=== PATIENT | male | born 1940 ===

== ENCOUNTER 2017-08-27 20:17 | Inpatient (IN) | payer MEDICARE, SELFPAY ==
[2017-08-27 20:52] LABS: #Lymphocytes 0.8 thou/uL (1.20-3.40); #Monocytes 0.9 thou/uL (0.11-0.59); #Neutrophils 12.8 thou/uL (1.40-6.50); %Eosinophils 0.2 % (0.0-10.0); %Lymphocytes 5.6 % (21.0-51.0); %Neutrophils 88.3 % (42.0-75.0); Hemoglobin 15.5 g/dL (14.0-18.0); Mean Corpuscular HGB CONC 33.5 g/dL (32.0-36.0); Mean Corpuscular Volume 95.5 fl (80.0-94.0); Mean Platelet Volume 8.7 fL (7.4-10.4); Platelet Count 191 thou/uL (130-400); RBC Distribution Width 12.9 % (11.5-14.5); Red Blood Cell (RBC) Count 4.83 mill/uL (4.70-6.10); White Blood Cell (WBC) Count 14.5 thou/uL (4.8-10.8)
[2017-08-27 21:02] LABS: PTT 24.9 SEC (22.9-36.1); Prothrombin Time 13.7 SEC (12.0-14.7)
[2017-08-27 21:06] LABS: Bilirubin Negative (Negative); Blood, Urine Negative (Negative); Clarity CLEAR (Clear); Glucose, Urine (Dipstick) Negative (Negative); Leukocyte Negative (Negative); Nitrite Negative (Negative); Protein, Urine (Dipstick) Negative (Neg-Trace); Specific Gravity, Urine 1.019 (1.002-1.036); Urobilinogen 0.2 mg/dL (0.2-1.0)
--- NOTE | 2017-08-27 21:13 | CT ---
CT OF BRAIN PERFORMED WITHOUT CONTRAST ENHANCEMENT: 08/27/17 HISTORY: History of previous stroke. Found unresponsive. There is generalized ventricular and sulcal prominence. There is encephalomalacic change related to a n old appearing left middle cerebral artery infarct. There is also some decreased attenuation in the right middle cerebral artery territory in the right frontal lobe. This could be acute to subacute in nature. No hemorrhage or mass effect. IMPRESSION: Possible acute or subacute right MCA infarct. POS: [facility]
[2017-08-27 21:24] LABS: ALT (SGPT) 89 U/L (8-55); AST (SGOT) 352 U/L (5-34); Albumin 4.4 g/dL (3.4-4.8); Alkaline Phosphatase 94 U/L (40-150); Anion Gap 22 mmol/L (10-20); BUN (Urea Nitrogen) 34 mg/dL (8.4-25.7); Bilirubin, Total 0.8 mg/dL (0.2-1.2); Calc. Creatinine Clearance 0 mL/min (70-130); Calcium 9.8 mg/dL (7.8-10.44); Carbon Dioxide 17 mmol/L (23-31); Chloride 101 mmol/L (98-107); Estimated GFR-MDRD 51; Globulin 3.9 g/dL (2.4-3.5); Glucose 134 mg/dL (83-110); Potassium 4.8 mmol/L (3.5-5.1); Protein, Total 8.3 g/dL (5.8-8.1); Sodium 135 mmol/L (136-145)
[2017-08-27 21:25] LABS: Troponin I 0.033 ng/mL (< 0.028)
[2017-08-27 21:29] LABS: CKMB 201.7 ng/mL (0-6.6)
--- NOTE | 2017-08-27 21:50 | RAD ---
PORTABLE CHEST: 08/27/17 HISTORY: Altered mental status, hypertension. Heart size is within normal limits. There are atherosclerotic changes of the aorta. The lungs are ana maria ar of infiltrates. IMPRESSION: 1. Atherosclerosis. 2. No active intrathoracic disease. POS: [facility]
[2017-08-27] MEDS ORDERED: Acetaminophen 325 MG Suppository ONE (22:02)
[2017-08-27] MEDS ORDERED: Aspirin 300 MG Suppository ONE (22:03)
[2017-08-27 22:05] LABS: Amphetamine Not Detected (NotDetected); Barbiturates Screen Not Detected (NotDetected); Benzodiazepine Screen Not Detected (NotDetected); Cocaine Metabolite Screen Not Detected (NotDetected); Medtox Control Line Valid? VALID (VALID); Medtox Reader # READER 1; Methadone Not Detected (NotDetected); Methamphetamine Not Detected (NotDetected); Opiate Screen Not Detected (NotDetected); Oxycodone Screen Not Detected (NotDetected); Phencyclidine (PCP) Not Detected (NotDetected); THC/Cannabinoid Screen Not Detected (NotDetected); Tricyclic Screen Not Detected (NotDetected)
[2017-08-27 22:10] LABS: Acetaminophen Less than 6.0 mcg/mL (10.0-30.0); Alcohol Less than 10 mg/dL (Less than 10); Salicylate Less than 8.0 mg/dL (15.0-30.0)
[2017-08-27] MEDS ORDERED: Sodium Chloride 0.9% 500 ML IV SCH ×2 (22:30→23:30)
[2017-08-27] MEDS ORDERED: Acetaminophen 325 MG TAB PO PRN ×2 (22:47→22:55)
[2017-08-27] MEDS ORDERED: Ondansetron HCl/PF 4 MG/2 ML Vial IVP PRN (22:47)
[2017-08-27] MEDS ORDERED: Ondansetron ODT 4 MG TAB SL PRN (22:47)
[2017-08-27] MEDS ORDERED: Sodium Chloride 0.9% 1,000 ML IV SCH (22:55)
[2017-08-27] MEDS ORDERED: Dextrose 5 % And 0.9 % NaCl 1,000 ML IV SCH (23:00)
[2017-08-27 23:19] VITALS: BMI 22.8
[2017-08-27 23:34] LABS: Creatinine, Urine 131.65 mg/dL (63-166)
[2017-08-28 00:21] LABS: Cardiac Risk 4.6 (Less than 4.5)
[2017-08-28 02:15] LABS: #Lymphocytes 1.3 thou/uL (1.20-3.40); #Monocytes 1.3 thou/uL (0.11-0.59); #Neutrophils 14.4 thou/uL (1.40-6.50); %Basophils 0.1 % (0.0-1.0); %Eosinophils 0.1 % (0.0-10.0); %Lymphocytes 7.7 % (21.0-51.0); %Monocytes 7.6 % (0.0-10.0); %Neutrophils 84.5 % (42.0-75.0); Hemoglobin 14.4 g/dL (14.0-18.0); Mean Corpuscular HGB CONC 33.4 g/dL (32.0-36.0); Mean Corpuscular Volume 95.8 fl (80.0-94.0); Mean Platelet Volume 8.1 fL (7.4-10.4); Platelet Count 215 thou/uL (130-400); RBC Distribution Width 12.7 % (11.5-14.5)
[2017-08-28 02:28] LABS: Lactic Acid 1.7 mmol/L (0.5-2.2)
[2017-08-28 02:42] LABS: Anion Gap 15 mmol/L (10-20); BUN (Urea Nitrogen) 36 mg/dL (8.4-25.7); Calc. Creatinine Clearance 55 mL/min (70-130); Calcium 9.4 mg/dL (7.8-10.44); Carbon Dioxide 21 mmol/L (23-31); Cardiac Risk 4.8 (Less than 4.5); Chloride 105 mmol/L (98-107); Cholesterol 190 mg/dl (< 200 Desired); Estimated GFR-MDRD 61; Glucose 123 mg/dL (83-110); HDL Cholesterol 40 mg/dL (>60 Neg Risk); LDL Cholesterol, Calculated 123 mg/dL; Sodium 137 mmol/L (136-145); Triglycerides 137 mg/dL (Less than 150)
[2017-08-28 02:44] LABS: CKMB 142.7 ng/mL (0-6.6)
[2017-08-28] MEDS: Sodium Chloride 0.9% 1,000 ML IV SCH ×4 (03:25→21:49)
--- NOTE | 2017-08-28 03:53 | HP-2 ---
TIME AND DATE OF SERVICE: 2200 hours on 08/27/2017 CODE STATUS: FULL. PRIMARY CARE PHYSICIAN: City call. ATTENDING: Aman Mix MD RESIDENT: Thong Barajas MD HISTORIAN: EMS. CHIEF COMPLAINT: Stroke. HISTORY OF PRESENT ILLNESS: Aman Ramirez is a 77-year-old male with past medical history of hyper tension, multiple strokes (5) that have left him with deficits in the right upper extremity contractu res and bilateral lower extremity contractures. The son came home tonight and found the patient slum ped over in a chair, moaning. He was unresponsive. EMS was called and when the EMS got there, the p atient was unresponsive to the EMS as well. Systolic blood pressure was 150 on the scene. He was fo und at approximately 8:00 p.m. and was down for an unknown period of time. No family member was at t he bedside to provide any history at all and the patient would not respond to any questions. PAST MEDICAL HISTORY: Per EMS, the patient has a history of five CVAs with right-sided deficits and hypertension. PAST SURGICAL HISTORY: According to the EMS, he has had a back surgery. ALLERGIES: Unknown. MEDICATIONS: Unknown. FAMILY HISTORY: Unknown. SOCIAL HISTORY: Unknown. REVIEW OF SYSTEMS: Unable to obtain. PHYSICAL EXAMINATION: VITAL SIGNS: Blood pressure 108/60, pulse 98, respiratory rate 22, T-max 99.5, pulse ox 100% on room air. Current weight 32 kilograms. GENERAL: The patient is alert and oriented x0. He is in no acute distress currently and he is thin. He is aphasic. EYES: Pupils equal, round, react to light and accommodation. Extraocular muscles are intact. Conju nctivae are within normal limits. ENT: Tympanic membranes pearly eng without bulging or erythema. Nasal mucosa and oropharynx had dr y mucous membranes. NECK: Supple, without lymphadenopathy or thyromegaly. CARDIOVASCULAR: Regular rhythm. The patient was slightly tachycardic. No murmurs, gallops, or rubs . RESPIRATORY: Normal effort. No retractions. LUNGS: Clear to auscultation bilaterally. SKIN: Warm and dry without cyanosis or lesions. ABDOMEN: Soft, nontender. Bowel sounds normoactive. No masses or distention. EXTREMITIES: No clubbing, cyanosis, or edema. MUSCULOSKELETAL: Patient has contractures in the right upper extremity. Was unable to assess range of motion and strength due to patient not cooperating with the exam. He was able to squeeze fingers with his left hand and he was able to lift up both lower extremities on command. No movement of the right upper extremity. NEUROLOGIC: As above, aphasic, more movement with left upper extremity and right and left lower extr emities on command. No movement of right upper extremity. Unable to assess sensation. PSYCHIATRIC: Unable to test. LABORATORY AND DIAGNOSTIC DATA: White blood cell count 14.5, hemoglobin 15.5, hematocrit 46.1, plate lets 191. Sodium 135, potassium 4.8, chloride 101, carbon dioxide 17, BUN 34, creatinine 1.35, gluco se 134, calcium 198, total protein 8.3, albumin 4.4, total bilirubin 0.8, AST 352, ALT 89, alkaline p hosphatase 94, lactic acid of 2.7. INR 1.0, PT 13.7, PTT 24.4, CK-MB 201.7. Troponins 0.033. UA wa s negative. UDS was negative. EKG showed sinus tachycardia with frequent PVCs. No ischemic changes . Chest x-ray showed atherosclerosis but no active cardiothoracic disease. CT of the head showed po ssible subacute or acute right MCA infarct. ASSESSMENT AND PLAN: A 77-year-old man with stroke, found altered by a son at home. 1. Right middle cerebral artery and cerebrovascular accident. Admit to stroke, placed on stroke pro tocol. Aspirin was given in the ED. Consult stroke team. Check CTA of head and neck, TTE and brain MRI. Check TSH, magnesium, phos, and fasting lipid panel. 2. Lactic acidosis likely secondary to hypovolemia. Repeat lactic acid after fluid bolus. Blood an d urine cultures, no current source of infection. We will hold antibiotics at this time. 3. Hypokalemia. Gentle IV fluids at 75 mL an hour. Check a BNP and strict I's and O's. 4. Elevated CK-MB. We will check a CK. It is likely secondary to unknown time of the patient being down trend cardiac enzymes and check EKG. 5. Indeterminate troponins likely secondary to stroke versus hypovolemia due to volume depletion or renal disease or congestive heart failure. We will check a BNP. Trend cardiac enzymes and EKG. 6. Acute kidney injury versus chronic kidney disease. Check urine creatinine and urine sodium. 7. Hyponatremia. Suspect hypovolemia. 8. Transaminitis. Check a right upper quadrant ultrasound. DISPOSITION AND LENGTH OF HOSPITAL STAY: Two days. Symptomatic medication will be provided. History and physical exam as well as management were discussed with Dr. Mix.
[2017-08-28 07:45] LABS: CKMB 96.6 ng/mL (0-6.6)
--- NOTE | 2017-08-28 07:47 | PDOC.FM ---
- Subjective Subjective: Pt seen at beside while code adams called, please see event note for details. HEATH overnight but pt less responsive this AM. Sent for CT. - Objective MAR Reviewed: Yes Vital Signs & Weight: Vital Signs (12 hours) Temp Pulse Resp BP Pulse Ox 08/28/17 03:41 99.7 F H 90 18 148/68 H 98 08/27/17 23:17 99.2 F 104 H 16 183/88 H 100 08/27/17 22:54 99.2 F 104 H 16 100 Weight Weight 72.167 kg I&O: 08/27/17 08/28/17 08/29/17 06:59 06:59 06:59 Intake Total 1500 Output Total 2049 Balance -550 Result Diagrams: 08/28/17 02:00 08/28/17 02:01 <Shun Razo - Last Filed: 08/28/17 10:01> - Objective Vital Signs & Weight: Vital Signs (12 hours) Temp Pulse Pulse Pulse Pulse Resp Resp 08/28/17 12:00 99.7 F H 93 18 08/28/17 08:17 87 18 08/28/17 08:00 99.7 F H 93 18 08/28/17 07:34 99 93 08/28/17 03:41 99.7 F H 90 18 BP BP BP BP Pulse Ox Pulse Ox Pulse Ox 08/28/17 12:00 134/60 95 08/28/17 08:17 152/81 H 97 08/28/17 08:00 141/66 H 96 08/28/17 07:34 175/82 H 155/72 H 95 08/28/17 03:41 148/68 H 98 Pulse Ox 08/28/17 12:00 08/28/17 08:17 08/28/17 08:00 08/28/17 07:34 95 08/28/17 03:41 Weight Weight 72.167 kg I&O: 08/27/17 08/28/17 08/29/17 06:59 06:59 06:59 Intake Total 1500 Output Total 2049 Balance -550 Result Diagrams: 08/28/17 02:00 08/28/17 02:01 <Aman Mix - Last Filed: 08/28/17 15:07> Phys Exam - Physical Examination HEENT: PERRLA, sclera anicteric Respiratory: clear to auscultation bilateral Cardiovascular: RRR, no significant murmur Gastrointestinal: soft, positive bowel sounds Musculoskeletal: pulses present GCS 9 (E2V2M5), minimal movement RUE & RLE left extremities withdraw to local pain, pt intermittently follows commands Deviation from normal: area of skin breakdown to left chest/flank <Shun Razo - Last Filed: 08/28/17 10:01> Dx/Plan (1) Cerebrovascular accident (CVA) involving right middle cerebral artery territory Code(s): I63.511 - CEREB INFRC D/T UNSP OCCLS OR STENOS OF RIGHT MID CEREB ART Status: Acute Plan: -pt presented for AMS after being found unresponsive by son who lives with father. per EMS reports, pt was making incomprehensible sounds and intermittently following commands. unknown time last seen normal so pt was not a tPA candidate. -pt reportedly has hx of multiple CVAs in past -initial CT on presentation showed acute vs subacute R MCA CVA -pt admitted to stroke unit for further workup. CTA head & neck ordered along with MRI brain and TTE. -with change in mental status this AM, stat repeat CT ordered to evaluate for extension of CVA or conversion to hemorrhage -neurology consulted, recs greatly appreciated. will order EEG to assess possible post ictal state. -stroke team consulted -continue with neuro checks and NIH scoring -consider APS consult (2) Rhabdomyolysis Code(s): M62.82 - RHABDOMYOLYSIS Status: Acute QualifierTitle: Encounter type: initial encounter Plan: [place] [address] -unclear etiology but pt down/unresponsive for unknown amount of time -possibly due to CVA and subsequent hypoperfusion -continue with aggressive IVF, NS currently @ 200 mls/hr -continue to monitor UOP closely -CK has trended downward (3) Cardiac enzymes elevated Code(s): R74.8 - ABNORMAL LEVELS OF OTHER SERUM ENZYMES Status: Acute Plan: -likely secondary to rhabdo and stress response -no EKG changes supporting acute process -continue to monitor (4) Acute renal injury due to hypovolemia Code(s): N17.9 - ACUTE KIDNEY FAILURE, UNSPECIFIED; E86.1 - HYPOVOLEMIA Status : Acute Plan: -MARIEL with prerenal FENa, responding to IVF -likely secondary to hypovolemia and rhabdo -continue with IVF and continue to monitor, especially with contrast with CT (5) Neutrophilic leukocytosis Code(s): D72.9 - DISORDER OF WHITE BLOOD CELLS, UNSPECIFIED Status: Acute Plan: -likely stress response to hypovolemia and rhabdo -normal CXR and UA, no obvious signs of infection as pt has been afebrile -blood and urine cultures pending -no need for abx at this time -lactic acid has trended down with fluids -continue to trend (6) Elevated LFTs Code(s): R79.89 - OTHER SPECIFIED ABNORMAL FINDINGS OF BLOOD CHEMISTRY Status : Acute Plan: -likely due to hypovolemia -RUQ US showed heterogeneous liver which could be hepatic steatosis or hepatocellular disease -consider CT abd to further assess (7) HTN (hypertension) Code(s): I10 - ESSENTIAL (PRIMARY) HYPERTENSION Status: Acute QualifierTitle: Hypertension type: unspecified Qualified Code(s): I10 - Essential (primary) hypertension Plan: -allow for permissive HTN -unclear hx (8) Skin breakdown Code(s): L90.9 - ATROPHIC DISORDER OF SKIN, UNSPECIFIED Status: Acute Plan: -left chest/flank, unclear etiology -wound care - Plan Plan: dispo: Pt stable at this time. Will continue workup with further brain imaging. Neurology and stroke team recommendations greatly appreciated. Will attempt to contact family for further history and plan of care. Continue aggressive IVF for rhabdo. Continue to monitor closely. <Shun Razo - Last Filed: 08/28/17 10:01> Attending Addendum - Attending Addendum I personally evaluated the patient and discussed the management with Dr. Razo. I agree with the History, Examination, Assessment and Plan documented above with any addition or exceptions noted below. Unfortunate gentleman with extensive CVD unlikely amenable to intervention and at risk for further infarction, had transient worsening of condition this a.m., becoming less responsive, though still capable of voluntary motor efforts similar to last night when assessed in CT. Neuro to consult, though suspect rec is medical mgt., supportive care, discuss long-term prognosis and implications to resuscitation with family as pt. unable to answer adequately for himself, and likely will need placement. Continue moderate volume resuscitation for clearance of CPK. Monitor renal function with Rhabdo and IV contrast. <Mix,Aman A - Last Filed: 08/28/17 15:07>
[2017-08-28 08:00] LABS: Troponin I 0.035 ng/mL (< 0.028)
[2017-08-28 08:37] LABS: Actual Bicarbonate (HCO3a) 21.1 mEq/L (22-26); Base Excess (BEa) -2.2 mEq/L (0 (+/-) 2.5); Calcium, Ionized 1.2 mmol/L (1.12-1.30); Hematocrit-ABG 40.9 % (42.0-52.0); Hemoglobin (Hb) 13.4 g/dL (14.0-18.0); O2 Tension (PaO2) 84.4 mmHg (80.0-100.0); pH, Arterial 7.44 (7.35-7.45)
[2017-08-28 08:38] LABS: Analyzer IN Cardio OR; Puncture Site LR
--- NOTE | 2017-08-28 09:36 | ULT ---
GALLBLADDER ULTRASOUND: HISTORY: Increased laboratory values. COMPARISON: None. TECHNIQUE: Utilizing a Multi-Hertz transducer, sonographic imaging of the right upper quadrant was performed in the longitudinal and transverse planes. FINDINGS: Suboptimal evaluation of the pancreas. The visualized hepatic parenchyma has a heterogeneous echotexture. No obvious hepatic masses or intr ahepatic biliary dilatation. The contour of the hepatic margin is maintained. The right hepatic lob e measures 14.1 cm. The main portal vein is patent. Appropriate directional flow. Common bile duct diameter is 0.3 cm. There is an echogenic focus adherent to the gallbladder wall, measuring 0.4 cm. No significant shado wing. Differential considerations include a gallbladder wall polyp versus an adherent nonshadowing s tone. The gallbladder wall is not thickened. No pericholecystic fluid. Negative Johnson sign. The right kidney has an overall normal echotexture, no hydronephrosis, an is 4.9 x 9.7 x 4.6 cm. IMPRESSION: 1. No sonographic evidence of cholelithiasis or cholecystitis. 2. Heterogeneous echotexture of the liver, which may be due to hepatic steatosis or hepatocellular d isease. If there is concern for intrahepatic masses, a liver mass protocol CT is recommended. POS: [facility]
--- NOTE | 2017-08-28 09:39 | PDOC.EVN ---
Event Note - Event Note Event Note: Mariano lamas called about 08:15 after pt was unresponsive. Pt had pulse and spontaneously breathing but had change in mental status compared to night nurses ' report to day shift. Resident physician responded to code green. Vitals signs on arrival were BP 147/70s HR 90s and O2 sat 94% on RA. GCS 9 (E2V2M5). POC glucose 130. RT sonia stat ABG. telemetry monitor placed which showed sinus rhythm. Pt minimally responsive to sternal rub or painful stimuli. NIH score 22. Due to patient's acute change in mental status, pt taken down for stat CT to evaluate extension of previous R MCA CVA or conversion to hemorrhage. VSS throughout code green with patient protecting airway. Will continue to monitor closely. Attending physician Dr. Mix present throughout code adams. <Shun Razo - Last Filed: 08/28/17 09:31> Attending Addendum - Attending Addendum I personally evaluated the patient and discussed the management with Dr. Razo. I agree with the History, Examination, Assessment and Plan documented above with any addition or exceptions noted below. <Aman Mix - Last Filed: 08/28/17 14:29>
--- NOTE | 2017-08-28 10:52 | CT ---
CT BRAIN WITHOUT CONTRAST: HISTORY: Stroke. COMPARISON: CT brain from 08/27/2017. FINDINGS: Left MCA and ELIANA encephalomalacia is similar. There is a similar appearance of the right MCA anterio r division infarction. No hemorrhagic conversion. Exam is limited due to extensive motion. The calvarium is intact. The paranasal sinuses and mastoid s are clear. Ex vacuo dilatation of the left lateral ventricular system. No significant mass effect upon the right lateral ventricle. IMPRESSION: Unchanged appearance of the right anterior middle cerebral artery distribution infarction without hem orrhagic conversion. POS: [facility]
--- NOTE | 2017-08-28 11:36 | CT ---
CT ANGIOGRAM HEAD: CT ANGIOGRAM NECK: CT PERFUSION: HISTORY: The patient was diagnosed with a right-sided stroke yesterday. The patient has had an acute change i n status. COMPARISON: None. TECHNIQUE: A CT angiogram of the head and neck were performed in the axial plane. Sagittal and coronal three-di mensional reformatted images are submitted for interpretation. CT perfusion is performed in the axia l plane. FINDINGS: NECK: Redemonstration of a subacute right temporal lobe/MCA distribution infarction. Changes in the left cerebrum due to remote left MCA distribution infarct. The visualized ocular lens is appropriately located. Both globes are intact. Retrobulbar fat is pre served. Adequate aeration of the sinuses and mastoid air cells. The aerodigestive tract is patent. No mucosal abnormality. No obvious masses in the oral cavity. Symmetric attenuation of the submandibular glands and parotid glands. Symmetric attenuation of the sternocleidomastoid muscles. Appropriate attenuation of the th yroid gland. No evidence of lymphadenopathy by size criteria. There are varying degrees of central canal stenosis and foraminal narrowing, on the basis of degenera tive change. The upper mediastinum and lung apices are unremarkable. CT ANGIOGRAM: Suboptimal evaluation of the aortic arch. RIGHT CAROTID: The right carotid artery origin is excluded from this exam. The visualized innominate artery has appropriate enhancement and luminal diameter. There is long-seg ment moderate stenosis involving the proximal right common carotid artery. The mid common carotid bustos s a short-segment moderate stenosis as well. The distal common carotid artery has moderate stenosis. At the right carotid bifurcation, there is absence of contrast. There is a combination of calcifie d and noncalcified plaque. There is absence of contrast throughout the entire right internal carotid artery, suggesting occlusion. LEFT CAROTID: The entire left carotid artery is occluded and is not appreciated throughout its cours e in the neck or with regard to the intracranial component. The left vertebral artery is dominant. The proximal left vertebral artery demonstrates some mild staci nosis. There is short-segment mild stenosis due to atherosclerosis throughout the cervical left vert ebral artery. The cervical right vertebral artery is diminutive throughout its entire course. Of no te, the proximal to mid right vertebral artery has long segments of absent enhancement, suggesting oc clusion. HEAD: There is absence of enhancement involving both intracranial internal carotid arteries. Specif ically, the entire left intracranial internal carotid arteries does not have any evidence of enhancem ent. The right paraclinoid segment does have some evidence of enhancement. Enhancement is presumed to be due to collateral branches, possibly from the right ophthalmic artery. The remainder of the ri ght intracranial internal carotid artery does not have any significant enhancement. There is diminished enhancement involving both M1 segments, likely due to decreased flow, secondary t o internal carotid occlusion. The left M1 segment is likely supplied via a patent posterior communic ating artery. A2 segments have symmetric enhancement. With regard to the posterior circulation, both vertebral arteries supply a normal caliber basilar art leann. The left and right P1 segments have symmetric enhancement. Limited evaluation of the right PIC A artery origin. CT PERFUSION: There is increased mean transit time in the right temporal lobe. There is correspondi ng decreased blood flow and decreased blood volume. There is a small component of preserved blood vo lume at the anterior and lateral aspect, suggesting a small penumbra. The majority of the affected r egion demonstrates infarct. IMPRESSION: 1. Redemonstration of a subacute right middle cerebral artery distribution infarction. 2. Malacic and gliotic changes of a remote left cerebral insult. 3. 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 4. Complete occlusion of the right internal carotid artery. 5. Anterior circulation is supplied via collateral flows. The right M1 segment and A1 segments appe ar to be supplied, in part, by the ophthalmic artery. The left M1 and A1 segments appear to be suppl ied via a patent left posterior communicating artery. 6. Significant atherosclerotic disease of the right vertebral artery. 7. Atherosclerosis in the proximal left vertebral artery. 8. Small area of penumbra/ischemia. The majority of the affected region is completely infarcted. POS: [facility]
[2017-08-28] MEDS: Aspirin 300 MG Suppository PR SCH (11:45)
[2017-08-28] MEDS: Enoxaparin Sodium 30 MG/0.3 ML SYRINGE SC SCH (11:46)
--- NOTE | 2017-08-28 17:03 | EKG ---
Test Reason : Blood Pressure : / mmHG Vent. Rate : 092 BPM Atrial Rate : 092 BPM P-R Int : 156 ms QRS Dur : 104 ms QT Int : 360 ms P-R-T Axes : 056 002 022 degrees QTc Int : 445 ms Sinus rhythm with occasional Premature ventricular complexes Inferior infarct (cited on or before 27-AUG-2017) Abnormal ECG When compared with ECG of 27-AUG-2017 20:23, (Unconfirmed) No significant change was found Confirmed by DR. Sheldon GRIMES ([id number]) on 08/28/2017 5:02:55 PM Referred By: RUSSELL Confirmed By:DR. Sheldon GRIMES
--- NOTE | 2017-08-28 18:05 | CON ---
DATE OF CONSULTATION: 08/28/2017 CONSULTING PHYSICIAN: [facility]. IMPRESSION: 1. Right middle cerebral artery stroke. 2. Prior left middle cerebral artery stroke. 3. Rhabdomyolysis. PLAN: 1. Continue antiplatelet therapy. 2. Probable PEG tube placement. 3. Probable need for group home placement or hospice care. HISTORY OF PRESENT ILLNESS: Mr. Ramirez is a 77-year-old man, who was brought in after being found unresponsive. His CT scan of the brain revealed evidence of right anterior MCA stroke that appeared acute. There is some chronic area of ischemia in the left MCA. He has a residual deficit with the r ight hemiparesis prior to this. His laboratory studies were remarkable for an elevated CPK of 13,000 . He has not had any type of seizure activity or other changes in his neurologic status since admiss ion and has had a low low-grade temperature of 99.7. CTA revealed evidence of bilateral internal car otid artery occlusions. There is some vertebral artery stenosis as well. I was called to give a forrest rologic opinion. PAST MEDICAL HISTORY: As per chart. MEDICATIONS: List was reviewed and it is unknown as to what he was taking prior to admission. ALLERGIES: None reported. SOCIAL HISTORY: Unknown. REVIEW OF SYSTEMS: Not obtainable. PHYSICAL EXAMINATION: GENERAL: He appears to be reasonably well-nourished, elderly gentleman lying in bed in no acute dist ress. VITAL SIGNS: Blood pressure 137/63, pulse 70, respirations 18, and temperature 99.2. HEENT: Pupils are equal and reactive. Conjunctivae clear. EXTREMITIES: He has some roving eye movements. His face is grossly symmetric. He has some spastici ty of the right upper extremity as compared to the left. The left appears relatively flaccid. He re sponded to light stimulation in both feet. NEURO: He opened his eyes to verbal stimulation, but did not respond verbally or follow any commands . Imaging was reviewed. Laboratory studies were reviewed. SUMMARY: This unfortunate gentleman with bilateral infarcts, which will likely result in significant dysphagia and impairment, I would proceed with PEG tube placement and comfort measures.
[2017-08-29] MEDS: Sodium Chloride 0.9% 1,000 ML IV SCH ×4 (04:45→20:12)
[2017-08-29 05:46] LABS: #Lymphocytes 1.9 thou/uL (1.20-3.40); #Monocytes 1.1 thou/uL (0.11-0.59); #Neutrophils 10.5 thou/uL (1.40-6.50); %Basophils 0.1 % (0.0-1.0); %Eosinophils 0.1 % (0.0-10.0); %Monocytes 8.4 % (0.0-10.0); %Neutrophils 77.4 % (42.0-75.0); Hemoglobin 12.7 g/dL (14.0-18.0); Mean Corpuscular HGB CONC 33.3 g/dL (32.0-36.0); Mean Corpuscular Hemoglobin 32.2 pg (27.0-31.0); Mean Corpuscular Volume 96.8 fl (80.0-94.0); Mean Platelet Volume 8.6 fL (7.4-10.4); Platelet Count 184 thou/uL (130-400); RBC Distribution Width 12.9 % (11.5-14.5); Red Blood Cell (RBC) Count 3.95 mill/uL (4.70-6.10); White Blood Cell (WBC) Count 13.6 thou/uL (4.8-10.8)
[2017-08-29 05:59] LABS: ALT (SGPT) 63 U/L (8-55); AST (SGOT) 142 U/L (5-34); Albumin 2.9 g/dL (3.4-4.8); Alkaline Phosphatase 63 U/L (40-150); Anion Gap 13 mmol/L (10-20); BUN (Urea Nitrogen) 32 mg/dL (8.4-25.7); Bilirubin, Total 0.9 mg/dL (0.2-1.2); CK (CPK) 3352 U/L (30-200); Calc. Creatinine Clearance 59 mL/min (70-130); Calcium 8.2 mg/dL (7.8-10.44); Carbon Dioxide 19 mmol/L (23-31); Chloride 113 mmol/L (98-107); Estimated GFR-MDRD 66; Globulin 2.5 g/dL (2.4-3.5); Glucose 112 mg/dL (83-110); Potassium 3.8 mmol/L (3.5-5.1); Protein, Total 5.4 g/dL (5.8-8.1); Sodium 141 mmol/L (136-145)
--- NOTE | 2017-08-29 06:48 | PDOC.FM ---
- Subjective Subjective: Pt seen at bedside in NAD. HEATH overnight. Pt continues to be minimally responsive to verbal stimuli. - Objective MAR Reviewed: Yes Vital Signs & Weight: Vital Signs (12 hours) Temp Pulse Resp BP Pulse Ox 08/29/17 04:00 99.2 F 92 20 123/60 94 L 08/29/17 00:31 99.2 F 78 20 126/59 L 94 L 08/28/17 20:45 99.2 F 78 20 96 08/28/17 20:00 98.7 F 85 18 130/62 96 Weight Admit Weight 72.121 kg Weight 72.167 kg I&O: 08/27/17 08/28/17 08/29/17 06:59 06:59 06:59 Intake Total 1500 3047 Output Total 0 Balance -550 3047 Result Diagrams: 08/29/17 05:00 08/29/17 05:00 <Shun Razo - Last Filed: 08/29/17 07:51> - Objective Vital Signs & Weight: Vital Signs (12 hours) Temp Pulse Pulse Pulse Resp BP BP 08/29/17 11:20 84 82 145/64 H 153/70 H 08/29/17 11:13 97.8 F 102 H 20 08/29/17 08:00 97.9 F 88 23 H 08/29/17 07:15 97.9 F 88 23 H 08/29/17 04:00 99.2 F 92 20 BP Pulse Ox 08/29/17 11:20 08/29/17 11:13 162/73 H 97 08/29/17 08:00 92 L 08/29/17 07:15 145/64 H 92 L 08/29/17 04:00 123/60 94 L Weight Admit Weight 72.121 kg Weight 72.167 kg I&O: 08/28/17 08/29/17 08/30/17 06:59 06:59 06:59 Intake Total 1500 3047 Output Total 2049 325 Balance -550 3047 -325 Result Diagrams: 08/29/17 05:00 08/29/17 05:00 <Jairo Haque - Last Filed: 08/29/17 14:13> Phys Exam - Physical Examination HEENT: PERRLA, sclera anicteric Respiratory: clear to auscultation bilateral Cardiovascular: RRR, no significant murmur Gastrointestinal: soft, positive bowel sounds Musculoskeletal: pulses present GCS10 (E2V2M6), minimal flaccid movement RUE & RLE left extremities follow command Deviation from normal: skin breakdown to left chest/flank <Shun Razo - Last Filed: 08/29/17 07:51> Dx/Plan (1) Cerebrovascular accident (CVA) involving right middle cerebral artery territory Code(s): I63.511 - CEREB INFRC D/T UNSP OCCLS OR STENOS OF RIGHT MID CEREB ART Status: Acute Plan: -pt presented for AMS after being found unresponsive by son who lives with father. per EMS reports, pt was making incomprehensible sounds and intermittently following commands. unknown time last seen normal so pt was not a tPA candidate. -pt reportedly has hx of multiple CVAs in past -initial CT on presentation showed acute vs subacute R MCA CVA -pt admitted to stroke unit for further workup. CTA head & neck ordered along with MRI brain and TTE. -with change in mental status on 08/28, stat repeat CT ordered to evaluate for extension of CVA or conversion to hemorrhage, which showed stable lesions -neurology consulted, recs greatly appreciated. -stroke team consulted -continue with neuro checks and NIH scoring -consider APS consult -CTA head/neck revealed multiple areas of complete occlusion and collateral flow through posterior circulation -palliative care also consulted to aid in discussions with family regarding goals of care and medical decision making (2) Rhabdomyolysis Code(s): M62.82 - RHABDOMYOLYSIS Status: Acute QualifierTitle: Encounter type: initial encounter Plan: [place] [address] -unclear etiology but pt down/unresponsive for unknown amount of time -possibly due to CVA and subsequent hypoperfusion -continue with aggressive IVF, NS currently @ 200 mls/hr -continue to monitor UOP closely -CK has trended downward (3) Cardiac enzymes elevated Code(s): R74.8 - ABNORMAL LEVELS OF OTHER SERUM ENZYMES Status: Acute Plan: -likely secondary to rhabdo and stress response -no EKG changes supporting acute process -continue to monitor (4) Acute renal injury due to hypovolemia Code(s): N17.9 - ACUTE KIDNEY FAILURE, UNSPECIFIED; E86.1 - HYPOVOLEMIA Status : Resolved Plan: -MARIEL with prerenal FENa, responding to IVF and resolved -likely secondary to hypovolemia and rhabdo -continue with IVF and continue to monitor, tolerated IV contrast well (5) Neutrophilic leukocytosis Code(s): D72.9 - DISORDER OF WHITE BLOOD CELLS, UNSPECIFIED Status: Acute Plan: -likely stress response to hypovolemia and rhabdo -normal CXR and UA, no obvious signs of infection as pt has been afebrile -blood and urine cultures pending. initial blood culture stains show 2/2 staph epi, still likely contaminant with pt being afebrile and having downward trending leukocytosis. -no need for abx at this time. will continue to monitor and consider adding PCN if suspicion for infection arises. -lactic acid has trended down with fluids (6) Elevated LFTs Code(s): R79.89 - OTHER SPECIFIED ABNORMAL FINDINGS OF BLOOD CHEMISTRY Status : Acute Plan: -likely due to hypovolemia -RUQ US showed heterogeneous liver which could be hepatic steatosis or hepatocellular disease -consider CT abd to further assess -continuing to downward trend with IVF (7) HTN (hypertension) Code(s): I10 - ESSENTIAL (PRIMARY) HYPERTENSION Status: Acute QualifierTitle: Hypertension type: unspecified Qualified Code(s): I10 - Essential (primary) hypertension Plan: -allow for permissive HTN -unclear hx -recent BPs have been well controlled and in normal range (8) Skin breakdown Code(s): L90.9 - ATROPHIC DISORDER OF SKIN, UNSPECIFIED Status: Acute Plan: -left chest/flank, unclear etiology -wound care - Plan Plan: dispo: Pt stable at this time. Neurology and stroke team recommendations greatly appreciated. Pt has failed swallow evals and will likely need multimedia production assistant care/rehab going forward. Palliative care assistance greatly appreciated. Will focus plans on family discussions regarding goals of care and proceeding with tube feeds vs comfort measures, etc. Continue to monitor closely. <Shun Razo - Last Filed: 08/29/17 07:51> Attending Addendum - Attending Addendum I personally evaluated the patient in his room and discussed the management with Dr. Razo and patient's daughter Tran (Josee Landeros?). I agree with the History, Examination, Assessment and Plan documented above with any addition or exceptions noted below. Patient is minimally reponsive to verbal commands, seems to open eyes/close eyes to commands somewhat consistently. He is Non-vocal. Daughter is convinced he "is in there" and understands. Right hemiparesis with contractures RUE and RLE. Weak paralysis on LUE and LLE. MRI resulted after our visit and shows findings of acute/subacute Right MCA stroke with chronic white matter changes and Left hemisphere encephalomalacia due to prior old Left hemispheric stroke(s). 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 Prognosis is grim. Daughter Tran states that her brother, Iban Ellis) is the hermit brother who only communicates vis his father's email account and is designated as the primary decision maker for their father. Current request is to have a PEG tube and full code (although she personally would be happy to have him designated as DNAR). Will place Dobhoff in hopes a PEG can be inserted int the next few days and placement can be arranged. We did discuss the fact that with Dobhoff or with PEG he still has a risk of regurgitation/aspiration/pneumonia. She expressed understanding. [facility] <Jairo Haque - Last Filed: 08/29/17 14:13>
[2017-08-29] MEDS ORDERED: FLU VACC TS2017-18 (>65YR) 0.5 ML SYRINGE IM ONE (09:00)
[2017-08-29] MEDS: Enoxaparin Sodium 30 MG/0.3 ML SYRINGE SC SCH (09:36)
[2017-08-29] MEDS: Aspirin 300 MG Suppository PR SCH (09:36)
--- NOTE | 2017-08-29 11:43 | MRI ---
MRI BRAIN WITHOUT CONTRAST: HISTORY: CVA. FINDINGS: Encephalomalacia in the left cerebral hemisphere, consistent with an old infarction, is again seen, a s on the previous day's CT scan. There is restricted diffusion in the anterior right MCA territory. No hemorrhage, midline shift, or abnormal extraaxial fluid collections are seen. There are changes of chronic small vessel ischemic disease in the periventricular white matter. Ventricular size is ap propriate. Basilar cisterns are patent. IMPRESSION: Recent (acute/subacute) right anterior middle cerebral artery infarction. POS: [facility]
[2017-08-29] MEDS: Pantoprazole 40 MG VIAL IVP SCH (12:16)
--- NOTE | 2017-08-29 15:36 | RAD ---
ABDOMEN ONE VIEW: HISTORY: Dobbhoff tube placement. FINDINGS/IMPRESSION: The feeding tube tip is in the direction of the stomach, particularly the left hemidiaphragm. The april wel gas pattern is unremarkable. There are degenerative changes in the spine with levoscoliosis of t he lumbar spine. POS: [facility]
[2017-08-29] MEDS ORDERED: Sodium Bicarbonate Tab 325 MG TAB PER TUBE PRN (17:09)
[2017-08-29] MEDS ORDERED: Pancrelipase DR 12000 1 CAP FS PRN (17:09)
[2017-08-29] MEDS ORDERED: Furosemide 20 MG/2 ML VIAL SLOW IVP SCH (23:45)
--- NOTE | 2017-08-29 23:57 | PDOC.EVN ---
Event Note - Event Note Event Note: Called by nursing asking me to come to bedside to evaluate patient as he was tachypneic, tachycardic, and had sonorous breath sounds. I arrived at bedside to evaluate patient. Vital Signs HR 113 RR 36 BP 178/84. Temp 98.6 O2 86% on RA Exam: Patient is sleeping but tachypneic with sonorous breath sounds but also has bibasilar rales. Heart is regular rate and rhythm. No lower extremity or sacral edema noted. A/P: Patient appears to be in mild respiratory distress. Placed on supplemental oxygen. Stat EKG, cardiac enzymes, BNP, and chest x-ray ordered. Patient is 5L fluid positive since arriving and echocardiogram was suggestive of diastolic dysfunction. Patient may need that much fluid due to rhabdomyolysis but acute decompensation of a previously unknown diastolic dysfunction due to fluid overload. Suspect that is the cause of his current distress but differential would include aspiration pneumonia and further decompensation. Patient is afebrile. Will review EKG, CXR, BNP, and CEz. Reviewed CXR at bedside - left costophrenic angle appeared blunted and he appeared to have some pulmonary vascular congestion. Will give some iv Lasix and continue to monitor closely.
--- NOTE | 2017-08-30 | RAD ---
AP VIEW OF THE CHEST 08/29/17 INDICATION: Increased work of breathing and tachycardia. COMPARISON: Prior exam dated 08/27/17. FINDINGS: There is increased air space opacity involving both lung bases. There has been interval development o f a small left pleural effusion. Dobhoff feeding tube tip is seen in the region of the proximal gastr ic body. Heart size is within normal limits. Pulmonary vasculature is normal appearing. No acute osse ous abnormality is evident. IMPRESSION: 1. Increased opacities within both lung bases may reflect subsegmental volume loss; however, asp iration or developing pneumonia cannot be entirely excluded. There is a new small left pleural effusi on. Continued followup is recommended. 2. Dobhoff feeding tube. POS: [facility]
[2017-08-30 00:37] LABS: Troponin I 0.084 ng/mL (< 0.028)
[2017-08-30 00:44] LABS: CKMB 9.9 ng/mL (0-6.6); Critical Call CKMBM RESULT DECREASING
[2017-08-30] MEDS ORDERED: Furosemide 20 MG/2 ML VIAL SLOW IVP SCH (01:54)
--- NOTE | 2017-08-30 02:01 | PDOC.EVN ---
Event Note - Event Note Event Note: At bedside to reevaluate patient. Nursing reports no change in status. Vitals Temp 99.4 HR 122 RR 38 O2 93% on 2L BP 153/72 Patient still has sonorous breath sounds and notable bibasilar rales. Slightly increased work of breathing. He is tachycardic. A/P: Still suspect fluid overload as primary cause of acute respiratory distress. BNP was indeterminate at 238. Chest x-ray and BNP do not rule out or in CHF exacerbation. CK-MB has improved but slight increase in troponin. Will continue to trend cardiac enzymes and EKG. Urine output of about 300 since giving Lasix. Will give another dose of Lasix as rales are actually more pronounced. Can likely continue tube feeds for now but have saline locked his iv fluids. Will continue to monitor closely.
[2017-08-30 03:52] LABS: Actual Bicarbonate (HCO3a) 20.5 mEq/L (22-26); Base Excess (BEa) -2.6 mEq/L (0 (+/-) 2.5); CO2 Tension 30.9 mmHg (35.0-45.0); Calcium, Ionized 1.2 mmol/L (1.12-1.30); Hemoglobin (Hb) 13.7 g/dL (14.0-18.0); O2 Tension (PaO2) 59.3 mmHg (80.0-100.0); pH, Arterial 7.44 (7.35-7.45)
[2017-08-30 03:53] LABS: Puncture Site RRAD
[2017-08-30 04:15] LABS: Band 6 % (5-11); Hemoglobin 13.7 g/dL (14.0-18.0); Lymphocytes 11 % (21-51); MDiff Complete? YES; Mean Corpuscular HGB CONC 33.6 g/dL (32.0-36.0); Mean Corpuscular Hemoglobin 32.3 pg (27.0-31.0); Mean Corpuscular Volume 96.3 fl (80.0-94.0); Mean Platelet Volume 8.6 fL (7.4-10.4); Monocytes 10 % (0-10); Neutrophil 73 % (42-75); PLT Morphology Comment Appears Adequate; Platelet Count 199 thou/uL (130-400); RBC Distribution Width 12.8 % (11.5-14.5); Red Blood Cell (RBC) Count 4.25 mill/uL (4.70-6.10)
[2017-08-30 04:20] LABS: ALT (SGPT) 76 U/L (8-55); AST (SGOT) 165 U/L (5-34); Albumin 3.2 g/dL (3.4-4.8); Alkaline Phosphatase 72 U/L (40-150); Anion Gap 13 mmol/L (10-20); BUN (Urea Nitrogen) 27 mg/dL (8.4-25.7); Bilirubin, Total 0.9 mg/dL (0.2-1.2); Calc. Creatinine Clearance 56 mL/min (70-130); Calcium 8.4 mg/dL (7.8-10.44); Carbon Dioxide 19 mmol/L (23-31); Chloride 114 mmol/L (98-107); Estimated GFR-MDRD 62; Glucose 159 mg/dL (83-110); Potassium 3.4 mmol/L (3.5-5.1); Protein, Total 6.2 g/dL (5.8-8.1); Sodium 143 mmol/L (136-145)
[2017-08-30 04:24] LABS: Troponin I 0.191 ng/mL (< 0.028)
[2017-08-30 04:27] LABS: CKMB 7.5 ng/mL (0-6.6); Critical Call CKMBM RESULT DECREASING
--- NOTE | 2017-08-30 04:53 | PDOC.EVN ---
Event Note - Event Note Event Note: I evaluated Mr. Ramirez again at 0335. His overall status and respiratory status had not improved. He still had bibasilar rales, increased work of breathing and sonorous breath sounds despite diuresis of over 1L. An ABG was ordered at that time. I then called his daughter, Josee Pérez, at 0350 to discuss his worsening status and that I felt he was likely progressing towards expiring. Mrs. Pérez had spoken to her sisters Cesilia and Juana and her brother Misael, and the 4 of them were in agreement that they did not want him intubated and wanted to change his code status to DNR-DNI. She stated she would call her siblings again to discuss placing him on hospice. Mrs. Pérez called back 30 minutes later after speaking to the same 3 siblings and stated they were in agreement that Mr. Ramirez should be DNR, a PEG tube should not be pursued, and that they would like for him to go on hospice. She preferred he go to an inpatient hospice facility near her if he stabilized. I advised her that he was unlikely to survive a long distance transfer at this time but we could certainly look into options if he stabilized. She agreed to allow the local inpatient hospice team evaluate him later this morning to evaluate if he was appropriate for transfer to their facility and thanked me for calling. We will now pursue comfort measures for Mr. Ramirez and consult inpatient hospice in the morning.
[2017-08-30] MEDS ORDERED: Morphine 4 MG/ML VIAL SLOW IVP PRN ×2 (04:54→07:51)
--- NOTE | 2017-08-30 06:48 | PDOC.FM ---
- Subjective Subjective: Pt seen at bedside in some respiratory distress. Pt's clinical status worsened overnight with pt becoming tachycardic, tachypneic, and having sonorous breath sounds - please see event notes. Family was contacted overnight and agreed to transition pt to DNR/DNI and comfort measures. - Objective MAR Reviewed: Yes Vital Signs & Weight: Vital Signs (12 hours) Temp Pulse Resp BP BP Pulse Ox 08/30/17 04:31 98.5 F 109 H 40 H 176/84 H 93 L 08/30/17 03:57 92 L 08/30/17 03:40 99.2 F 125 H 36 H 160/77 H 90 L 08/30/17 01:57 99.4 F 133 H 38 H 163/72 H 93 L 08/30/17 00:19 99.6 F 134 H 32 H 224/96 H 88 L 08/30/17 00:00 88 L 08/29/17 23:40 98.4 F 98 34 H 178/84 H 89 L 08/29/17 20:00 98.9 F 93 24 H 90 L 08/29/17 19:59 98.9 F 93 24 H 171/75 H 90 L Weight Admit Weight 72.121 kg Weight 70.715 kg I&O: 08/28/17 08/29/17 08/30/17 06:59 06:59 06:59 Intake Total 1500 3047 800 Output Total 2050 3125 Balance -550 0827 -5549 Result Diagrams: 08/30/17 03:52 08/30/17 03:52 Radiology Reviewed by me: Yes <Shun Razo - Last Filed: 08/30/17 07:51> - Objective Vital Signs & Weight: Vital Signs (12 hours) Temp Pulse Resp BP BP Pulse Ox 08/30/17 11:18 100.3 F H 122 H 22 H 153/84 H 92 L 08/30/17 07:18 98.4 F 98 20 141/67 H 92 L 08/30/17 04:31 98.5 F 109 H 40 H 176/84 H 93 L 08/30/17 03:57 92 L 08/30/17 03:40 99.2 F 125 H 36 H 160/77 H 90 L Weight Admit Weight 72.121 kg Weight 70.715 kg I&O: 08/29/17 08/30/17 08/31/17 06:59 06:59 06:59 Intake Total 3047 800 Output Total 3125 Balance 3047 -2325 Result Diagrams: 08/30/17 03:52 08/30/17 03:52 <Jairo Haque - Last Filed: 08/30/17 14:17> Phys Exam - Physical Examination respiratory distress HEENT: sclera anicteric mild left basilar crackles Cardiovascular: no significant murmur tachycardic Gastrointestinal: soft, non-tender Musculoskeletal: no edema, pulses present somnolent, GCS9 (E2V2M5) <Shun Razo M - Last Filed: 08/30/17 07:51> Dx/Plan (1) Cerebrovascular accident (CVA) involving right middle cerebral artery territory Code(s): I63.511 - CEREB INFRC D/T UNSP OCCLS OR STENOS OF RIGHT MID CEREB ART Status: Acute Plan: -pt presented for AMS after being found unresponsive by son who lives with father. per EMS reports, pt was making incomprehensible sounds and intermittently following commands. unknown time last seen normal so pt was not a tPA candidate. -pt reportedly has hx of multiple CVAs in past -initial CT on presentation showed acute vs subacute R MCA CVA -pt admitted to stroke unit for further workup. CTA head & neck ordered along with MRI brain and TTE. -with change in mental status on 08/28, stat repeat CT ordered to evaluate for extension of CVA or conversion to hemorrhage, which showed stable lesions -neurology consulted, recs greatly appreciated. -CTA head/neck revealed multiple areas of complete occlusion and collateral flow through posterior circulation -palliative care also consulted to aid in discussions with family regarding goals of care and medical decision making -with patient's change in status overnight, family has decided to transition to DNR/DNI and comfort measures -will consult hospice this AM and transition pt to hospice care (2) Rhabdomyolysis Code(s): M62.82 - RHABDOMYOLYSIS Status: Acute QualifierTitle: Encounter type: initial encounter Plan: -[place] [address] -unclear etiology but pt down/unresponsive for unknown amount of time -possibly due to CVA and subsequent hypoperfusion -CK has downward trended and pt likely became fluid overloaded as result -IVF have been stopped (3) Cardiac enzymes elevated Code(s): R74.8 - ABNORMAL LEVELS OF OTHER SERUM ENZYMES Status: Acute Plan: -likely secondary to rhabdo and stress response -no EKG changes supporting acute process -continue to monitor (4) Acute renal injury due to hypovolemia Code(s): N17.9 - ACUTE KIDNEY FAILURE, UNSPECIFIED; E86.1 - HYPOVOLEMIA Status : Resolved Plan: -MARIEL with prerenal FENa, responding to IVF and resolved -likely secondary to hypovolemia and rhabdo (5) Neutrophilic leukocytosis Code(s): D72.9 - DISORDER OF WHITE BLOOD CELLS, UNSPECIFIED Status: Acute Plan: -likely stress response to hypovolemia and rhabdo -normal CXR and UA, no obvious signs of infection as pt has been afebrile -blood and urine cultures pending. initial blood culture stains show 2/2 staph epi, still likely contaminant with pt being afebrile and having downward trending leukocytosis. -no need for abx at this time. will continue to monitor and consider adding PCN if suspicion for infection arises. -lactic acid has trended down with fluids (6) Elevated LFTs Code(s): R79.89 - OTHER SPECIFIED ABNORMAL FINDINGS OF BLOOD CHEMISTRY Status : Acute Plan: -likely due to hypovolemia -RUQ US showed heterogeneous liver which could be hepatic steatosis or hepatocellular disease -consider CT abd to further assess -continuing to downward trend with IVF (7) HTN (hypertension) Code(s): I10 - ESSENTIAL (PRIMARY) HYPERTENSION Status: Acute QualifierTitle: Hypertension type: unspecified Qualified Code(s): I10 - Essential (primary) hypertension Plan: -unclear hx -comfort measures (8) Skin breakdown Code(s): L90.9 - ATROPHIC DISORDER OF SKIN, UNSPECIFIED Status: Acute Plan: -left chest/flank, unclear etiology -wound care - Plan Plan: dispo: Pt clinically decompensated overnight. Family was contacted and 4 siblings agreed to make pt DNR/DNI and pursue hospice with comfort measures. NG tube discontinued, IVF stopped, and will stop lab draws. Morphine available for air hunger and comfort measures. Palliative care assistance greatly appreciated. <Shun Razo - Last Filed: 08/30/17 07:51> Attending Addendum - Attending Addendum I personally evaluated the patient and discussed the management with Dr. Lazaro from night team and Dr. Razo. I agree with the History, Examination, Assessment and Plan documented above with any addition or exceptions noted below. Mr. Shirley appears to be actively dying. Resp 30s-40s. Tachycardia, hypertensinve. Non-verbal and non-vocal. Eyes open appears alert. Does not follow commands. A: Post stroke. Hx of multiple strokes. Tachypnea. Actively dying. P: Arrangements are being made to transfer to inpatient hospice facility - [facility], with family in agreement. Out of hospital DNR signed. Increase IV morphine to 2 mg IV q 2 hours. Will increase to more frequently if needed to provide comfort for air hunger. [facility] <Jairo Haque - Last Filed: 08/30/17 14:17>
[2017-08-30] MEDS: Pantoprazole 40 MG VIAL IVP SCH (08:56)
[2017-08-30] MEDS: Morphine 4 MG/ML VIAL SLOW IVP PRN ×5 (11:35→23:15)
[2017-08-30] MEDS: Acetaminophen 1,000 MG in Premix Bag 1 BAG IVPB PRN (16:47)
[2017-08-31] MEDS: Morphine 4 MG/ML VIAL SLOW IVP PRN ×9 (01:34→19:00)
[2017-08-31] MEDS: Acetaminophen 1,000 MG in Premix Bag 1 BAG IVPB PRN (05:45)
--- NOTE | 2017-08-31 07:45 | PDOC.FM ---
- Subjective Subjective: Pt seen at bedside, no family in room. Pt transitioned to comfort measures yesterday. Pt continues to be tachypneic with sonorous breath sounds and tachycardic. Evaluated by hospice nurse yesterday with plans to transition to inpatient hospice today. - Objective MAR Reviewed: Yes Vital Signs & Weight: Vital Signs (12 hours) Temp Pulse Resp BP BP Pulse Ox 08/31/17 05:07 102 F H 132 H 28 H 108/58 L 92 L 08/30/17 23:51 99.4 F 120 H 26 H 155/74 H 91 L 08/30/17 20:46 100.1 F H 115 H 24 H 143/65 H 91 L 08/30/17 20:00 99.4 F 120 H 26 H 91 L Weight Admit Weight 72.121 kg Weight 70.715 kg I&O: 08/30/17 08/31/17 09/01/17 06:59 06:59 06:59 Intake Total 800 Output Total 3125 Balance -2325 Result Diagrams: 08/30/17 03:52 08/30/17 03:52 Phys Exam - Physical Examination mod respiratory distress HEENT: sclera anicteric bibasilar crackles tachycardic Gastrointestinal: soft somnolent, GCS8(E2V2M4) Dx/Plan (1) Cerebrovascular accident (CVA) involving right middle cerebral artery territory Code(s): I63.511 - CEREB INFRC D/T UNSP OCCLS OR STENOS OF RIGHT MID CEREB ART Status: Acute Plan: -pt presented for AMS after being found unresponsive by son who lives with father. per EMS reports, pt was making incomprehensible sounds and intermittently following commands. unknown time last seen normal so pt was not a tPA candidate. -pt reportedly has hx of multiple CVAs in past -initial CT on presentation showed acute vs subacute R MCA CVA -pt admitted to stroke unit for further workup. CTA head & neck ordered along with MRI brain and TTE. -with change in mental status on 08/28, stat repeat CT ordered to evaluate for extension of CVA or conversion to hemorrhage, which showed stable lesions -neurology consulted, recs greatly appreciated. -CTA head/neck revealed multiple areas of complete occlusion and collateral flow through posterior circulation -palliative care also consulted to aid in discussions with family regarding goals of care and medical decision making -with patient's change in status overnight, family has decided to transition to DNR/DNI and comfort measures -hospice was consulted and pt evaluated by hospice for transition to inpatient hospice (2) Rhabdomyolysis Code(s): M62.82 - RHABDOMYOLYSIS Status: Acute Qualifiers: Encounter type: initial encounter Plan: -[place] [address] -unclear etiology but pt down/unresponsive for unknown amount of time -possibly due to CVA and subsequent hypoperfusion -CK has downward trended and pt likely became fluid overloaded as result -IVF have been stopped (3) Cardiac enzymes elevated Code(s): R74.8 - ABNORMAL LEVELS OF OTHER SERUM ENZYMES Status: Acute Plan: -likely secondary to rhabdo and stress response -no EKG changes supporting acute process -continue to monitor (4) Acute renal injury due to hypovolemia Code(s): N17.9 - ACUTE KIDNEY FAILURE, UNSPECIFIED; E86.1 - HYPOVOLEMIA Status : Resolved Plan: -MARIEL with prerenal FENa, responding to IVF and resolved -likely secondary to hypovolemia and rhabdo (5) Neutrophilic leukocytosis Code(s): D72.9 - DISORDER OF WHITE BLOOD CELLS, UNSPECIFIED Status: Acute Plan: -likely stress response to hypovolemia and rhabdo (6) Elevated LFTs Code(s): R79.89 - OTHER SPECIFIED ABNORMAL FINDINGS OF BLOOD CHEMISTRY Status : Acute Plan: -likely due to hypovolemia on presentation -RUQ US showed heterogeneous liver which could be hepatic steatosis or hepatocellular disease (7) HTN (hypertension) Code(s): I10 - ESSENTIAL (PRIMARY) HYPERTENSION Status: Acute Qualifiers: Hypertension type: unspecified Qualified Code(s): I10 - Essential (primary ) hypertension Plan: -unclear hx -comfort measures (8) Skin breakdown Code(s): L90.9 - ATROPHIC DISORDER OF SKIN, UNSPECIFIED Status: Acute Plan: -left chest/flank, unclear etiology -wound care - Plan Plan: dispo: Continue with comfort measures and transition to inpatient hospice. Out of hospital DNR signed.
[2017-08-31] MEDS: Pantoprazole 40 MG VIAL IVP SCH (08:31)
--- NOTE | 2017-08-31 15:26 | ADD-PRG ---
DATE OF SERVICE: 08/31/2017 This is an addendum to the note of Dr. Shun Razo. Mr. Ramirez is an unfortunate 77-year-old man, who was admitted with a right middle cerebral artery CVA. Over the weekend, he became progressively more somnolent and developed respiratory distress. I t was elected by his family to make him a DNR/DNI. He is currently comatose and demonstrates labored breathing.
[2017-08-31 20:34] VITALS: BP 152/74; TEMP 99.7
--- NOTE | 2017-08-31 21:53 | PDOC.EVN ---
Event Note - Event Note Event Note: Was called by ANGELO Sherman around 0830 to confirm of patient. Nurse reports dropping O2 saturation throughout the day with agonal breathing. RN at bedside when patient took his last breath. I went to bedside to evaluate. Confirmed, no pulse, no heartbeat. Time of 2027. Called patients daughters, DARIA and Juana Ramirez and relayed information to them. All questions answered. certificate and summary will be signed by Dr. Prince and Dr. Razo.
--- NOTE | 2017-09-01 07:43 | EKG ---
Test Reason : STAT Blood Pressure : / mmHG Vent. Rate : 120 BPM Atrial Rate : 120 BPM P-R Int : 142 ms QRS Dur : 108 ms QT Int : 318 ms P-R-T Axes : 037 -05 -16 degrees QTc Int : 449 ms Sinus tachycardia with frequent Premature ventricular complexes and Fusion complexes Possible Inferior infarct (cited on or before 27-AUG-2017) Nonspecific ST-T changes Poor anterior R wave progression Abnormal ECG When compared with ECG of 28-AUG-2017 07:30, Fusion complexes are now Present Confirmed by DR. Sheldon GRIMES ([id number]) on 09/01/2017 7:43:01 AM Referred By: Jarvis QUEVEDO Confirmed By:DR. Sheldon GRIMES
--- NOTE | 2017-09-01 07:43 | EKG ---
Test Reason : ROUTINE Blood Pressure : / mmHG Vent. Rate : 139 BPM Atrial Rate : 139 BPM P-R Int : 140 ms QRS Dur : 098 ms QT Int : 274 ms P-R-T Axes : 026 000 014 degrees QTc Int : 416 ms Sinus tachycardia with Premature atrial complexes Possible Inferior infarct (cited on or before 27-AUG-2017) Cannot rule out Anterior infarct , age undetermined Abnormal ECG When compared with ECG of 30-AUG-2017 00:11, (Unconfirmed) Fusion complexes are no longer Present Premature ventricular complexes are no longer Present Premature atrial complexes are now Present Confirmed by DR. Sheldon GRIMES ([id number]) on 09/01/2017 7:43:33 AM Referred By: RUSSELL Confirmed By:DR. Sheldon GRIMES
--- NOTE | 2017-09-01 08:27 | DS-2 ---
DATE OF ADMISSION: 08/27/2017 DATE OF : 08/31/2017 TIME OF : 20:28 hours. ATTENDING: Dr. Ildefonso Prince. RESIDENT: Dr. Shun Razo. CAUSE OF : 1. 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 2. 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 3. Rhabdomyolysis, likely secondary to #1. SECONDARY DIAGNOSES: Unknown. HOSPITAL COURSE: The patient is an unfortunate 77-year-old male, who presented after being found unresponsive and aphasic. The patient is known to have a history of multiple strokes in the past; however, the rest of his medical history was unobtainable secondary to the patient being aphasic and family members not knowing his medical history. The patient showed no improvement from a neurologic standpoint after his admission. While the patient was being treated for rhabdomyolysis, the patient decompensated overnight on 08/30/2017. At that time, a family decision was made to make the patient DNR and to focus on comfort care. The patient was evaluated and being set up for transfer to inpatient hospice, however, in the hospital prior to these arrangements being made. For more detailed descriptions of his hospital stay, please see event and progress notes. [facility]
--- NOTE | 2017-09-01 10:49 | EEG ---
Referring Physician: Sheldon MEJIA EEG # [id number] TEST TYPE: ROUTINE PORTABLE INPATIENT REPORT: AN EEG USING THE [employer] TEN-TWENTY SYSTEM OF ELECTRODE PLACEMENT WAS PERFORMED. The waking background is as best an 8 hertz alpha frequency. There is some intermixed theta frequencies over both hemispheres. No sleep was seen. NO epileptiform features were present. Photic stimulation was unremarkable. IMPRESSION: THERE IS MILD SLOWING OVER BOTH HEMISPHERES CONSISTENT WITH A DIFFUSE ENCEPHALOPATHIC PROCESS. Online Facilitator: zion Certified Green Building Engineer: EEG.[email or web address] [email or web address]
--- NOTE | 2017-09-07 19:38 | PQF ---
SAFIA GREENCM [id number] [facility] [id number] CLINICAL DOCUMENTATION CLARIFICATION FORM: POST DISCHARGE Addendum to original discharge summary date: there is no progress note on 09/01/17. pt evening of 08/31/17. pt did decompensate overnight on 08/30 and was adequately documented via event notes. pt had acute respiratory failure with hypoxia 08/30 until time of on 08/31/17. Late entry note date: __ DATE: 09/07/2017 ATTN: Dear Dr. Razo Please exercise your independent, professional judgment in responding to the clarification form. Clinical indicators are provided on the bottom of this form for your review Progress Note Addendum 09/01/2017 Patient developed acute respiratory distress with O2 sats dropping Please check appropriate box(s): [ ] Acute Respiratory Distress nos [ x ] Acute Respiratory Failure: [ x ] with Hypoxia[ ] with Hypercapnia [ ] Acute On Chronic Respiratory Failure: [ ] with Hypoxia [ ] with Hypercapnia [ ] Acute Respiratory Failure due to: (etiology) [ ] Acute Respiratory Insufficiency following (if applicable): [ ] trauma [ ] surgery [ ] Chronic Respiratory Failure only [ ] with Hypoxia [ ] with Hypercapnia [ ] Hypoxia [ ] Other diagnosis [ ] Unable to determine In addition, please specify: Present on Admission (POA): [ ] Yes [ ] No [ ] Unable to determine For continuity of documentation, please document condition throughout progress notes and discharge summary. Thank You. CLINICAL INDICATORS - SIGNS / SYMPTOMS / LABS ABG pH < 7.35 or > 7.45 Decreased oxygen saturation (<90% room air or < 95% on oxygen). Cyanosis/Hypoxia PCO2 > 50 mm Hg (PCO2 findings of 10-15 mm Hg above the patient's normal level if patient has COPD) PO2 < 60 mm Hg (PCO2 findings of 10-15 mm Hg below the patient's normal level if patient has COPD) Labored or rapid respirations (use of accessory muscles or inability to speak full sentences, air hunger) Pulmonary vascular congestion CXR RISK FACTORS History of home O2 use Recent surgery Chest trauma COPD exacerbation / Asthma CHF exacerbation Tobacco abuse / exposure Pneumonia CVA AMI TREATMENTS: Oxygen Monitoring of oxygenation status Mechanical ventilation / BiPAP Respiratory treatments Serial CXR ABGs Antibiotics IV Bronchodilators Diuresis Pulmonary Consult ICU/Stepdown (This form is maintained as a part of the permanent medical record) 2014 [employer]. All Rights Reserved Obiorshruthi [email or web address] [phone] ELIA
--- NOTE | 2017-09-17 15:29 | EKG ---
Test Reason : Blood Pressure : / mmHG Vent. Rate : 108 BPM Atrial Rate : 108 BPM P-R Int : 146 ms QRS Dur : 110 ms QT Int : 328 ms P-R-T Axes : 059 -17 -04 degrees QTc Int : 439 ms Sinus tachycardia vs A Flutter with occasional Premature ventricular complexes Possible Left atrial enlargement Inferior infarct , age undetermined Abnormal ECG Confirmed by CHAPIN HOLLOWAY ([id number]), editor house organ APOLONIA TESFAYE ([id number]) on 09/17/2017 3:28:47 PM Referred By: Confirmed By:CHAPIN HOLLOWAY
== END 2017-08-31 20:28 | disposition expired | DRG 64 ==
LOC: ERS 20:17 → 2SE 20:41 → T4-A 08-31 12:51
PROVIDERS: ADMIT Family Medicine; ATTEND Family Medicine
PROC: B030ZZZ Magnetic Resonance Imaging (MRI) of Brain (ICD-10-PCS; principal; 2017-08-29)
DX: I63.511 Cerebral infarction due to unspecified occlusion or stenosis of right middle cerebral artery (principal); J96.01 Acute respiratory failure with hypoxia; N17.9 Acute kidney failure, unspecified; E87.2 Acidosis; E87.1 Hypo-osmolality and hyponatremia; G93.89 Other specified disorders of brain; M62.82 Rhabdomyolysis; I69.351 Hemiplegia and hemiparesis following cerebral infarction affecting right dominant side; R47.01 Aphasia; I65.23 Occlusion and stenosis of bilateral carotid arteries; I10 Essential (primary) hypertension; E87.6 Hypokalemia; E86.1 Hypovolemia; N18.9 Chronic kidney disease, unspecified; D72.9 Disorder of white blood cells, unspecified; L90.9 Atrophic disorder of skin, unspecified; R74.0 Nonspecific elevation of levels of transaminase and lactic acid dehydrogenase [LDH]; R74.8 Abnormal levels of other serum enzymes; Z66 Do not resuscitate; Z51.5 Encounter for palliative care
CPT/HCPCS: 0042T; 36415; 36416; 51701; 70450; 70496; 70498; 70551; 71010; 74000; 76705; 80048; 80053; 80061; 80306; 80307; 81003; 82550; 82553; 82570; 82805; 83605; 83735; 83880; 84100; 84300; 84443; 84484; 85025; 85610; 85730; 87040; 87077; 87086; 87149; 93005; 93010; 93306; 95816; 95819; A4216; C9113; G8978-GP-CN; G8979-GP-CL; G8987-GO-CN; G8988-GO-CL; G8996-GN-CN; G8997-GN-CM; J0131; J1650; J1940; J2270